=== PATIENT | male | born 1960 | race African-American/Black ===

== ENCOUNTER 2021-07-19 19:05 | Emergency (ER) | payer SELFPAY ==
[~2021-07-19] VITALS: Ht 193 cm; Wt 114.8 kg
[2021-07-19 19:46] VITALS: BP 146/86
[2021-07-19] MEDS ORDERED: LIDOCAINE MPF 1% 5 ML ONE (20:20)
[2021-07-19 20:30] VITALS: BP 146/86
[2021-07-19] MEDS: LIDOCAINE MPF 1% 10 MG/ML VIAL INJ ONE (20:41)
== END 2021-07-19 20:30 | disposition home or self-care (01) ==
LOC: MED 19:05
DX: S01.01XA Laceration without foreign body of scalp, initial encounter (principal); V89.2XXA Person injured in unspecified motor-vehicle accident, traffic, initial encounter; Y93.89 Activity, other specified; Y92.89 Other specified places as the place of occurrence of the external cause; Y99.8 Other external cause status
CPT/HCPCS: 12001; 82948; 99283; J2001